=== PATIENT | male | born 1955 | race Caucasian/White ===

== ENCOUNTER 2020-05-08 22:23 | Emergency (ER) | payer SELFPAY ==
[~2020-05-08] VITALS: Ht 182.9 cm; Wt 103.4 kg
[~2020-05-08 22:23] MED LIST: HYDR25TA4 PO
[2020-05-08 23:46] VITALS: BP 127/95
[2020-05-09] MEDS ORDERED: KETOROLAC TROMETH 60MG/2ML VIAL IM ONE (00:15)
[2020-05-09] MEDS ORDERED: methylPREDNISolone SOD SUCC 125 MG/2 ML VL IM ONE (00:15)
== END 2020-05-09 00:56 | disposition home or self-care (01) ==
LOC: ER 22:26
DX: S34.21XA Injury of nerve root of lumbar spine, initial encounter (principal); I10 Essential (primary) hypertension; M47.26 Other spondylosis with radiculopathy, lumbar region; M51.36 Other intervertebral disc degeneration, lumbar region; X58.XXXA Exposure to other specified factors, initial encounter; Y93.89 Activity, other specified; Y92.89 Other specified places as the place of occurrence of the external cause; Y99.8 Other external cause status
CPT/HCPCS: 72131; 96372; 99284; J1885; J2930